=== PATIENT | male | born 1980 | race Caucasian/White ===

== ENCOUNTER 2017-05-13 15:18 | Emergency (ER) | payer OTHER ==
[~2017-05-13] VITALS: Ht 172.7 cm; Wt 101.2 kg
[2017-05-13] MEDS ORDERED: IOHEXOL 300 MG/ML 75 ML VIAL. IV ONE (17:00)
[2017-05-13] MEDS ORDERED: CONTRAST GIVEN MC PRN (17:00)
[2017-05-13] MEDS ORDERED: IV NORMAL SALINE 1,000ML 1,000 ML IV ONE (17:00)
[2017-05-13 17:04] LABS: BASO # 0.1 x10^3/uL (0.0-0.2); BASO % 1 % (0-3); EOS # 0.2 x10^3/uL (0.0-0.7); EOS % 4 % (0-3); HEMATOCRIT 45.3 % (39.0-53.0); HEMOGLOBIN 16.1 g/dL (13.0-17.5); LYMPH # 1.4 x10^3/uL (1.0-4.8); LYMPH % 24 % (24-48); MEAN CORPUSCULAR HEMOGLOBIN 31 pg (25-35); MEAN CORPUSCULAR HGB CONC 36 g/dL (31-37); MEAN CORPUSCULAR VOLUME 88 fL (79-100); MONO # 0.5 x10^3/uL (0.0-1.1); MONO % 8 % (0-9); NEUT # 3.7 x10^3uL (1.8-7.7); NEUT % 63 % (31-73); PLATELET COUNT 173 x10^3/uL (140-400); RED BLOOD COUNT 5.15 x10^6/uL (4.30-5.70); RED CELL DISTRIBUTION WIDTH 12.8 % (11.5-14.5); WHITE BLOOD COUNT 5.9 x10^3/uL (4.0-11.0)
[2017-05-13 17:05] LABS: CALCIUM 8.9 mg/dL (8.5-10.1); CREATININE 1.1 mg/dL (0.7-1.3); GFR 75.3; POTASSIUM 4.2 mmol/L (3.5-5.1)
--- NOTE | 2017-05-13 17:55 | RAD ---
Exam performed : CT Scan neck with contrast. Indication: Left neck pain with swelling and difficulty swallowing} Date of exam: 05/13/2017 . Comparison: None available} Technique: Helical sections of the neck were obtained during intravenous administration of unknown quantities of IV contrast Findings: The caudal aspects of the skull appear unremarkable. The visualized portions of the paranasal sinuses and mastoid air cells are clear. The parotid and submandibular salivary glands appear normal. Symmetric enlargement of bilateral pharyngeal tonsils noted. Evidence of an oropharyngeal or parapharyngeal soft tissue mass is absent. No pathologic lymphadenopathy is encountered. Definite laryngeal pathology is not identified. The thyroid gland is normal in appearance as are the visualized structures of the superior mediastinum. Impression: Mild enlargement of bilateral pharyngeal tonsils. No additional abnormality seen. PQRS Compliance Statement: One or more of the following individualized dose reduction techniques were utilized for this examination: 1. Automated exposure control 2. Adjustment of the mA and/or kV according to patient size 3. Use of iterative reconstruction technique Electronically signed by: Tanna Echeverria MD (05/13/2017 5:51 PM) [facility]
--- NOTE | 2017-05-13 17:58 | PHYS DOC ---
Past History Past Medical History: Hypertension Past Surgical History: No Surgical History Alcohol Use: Occasionally Drug Use: None Adult General Chief Complaint Chief Complaint: SORE THROAT HPI HPI Patient is a 36 year old M who presents with sore throat over the past 2 months with gradual worsening over the past 2 weeks. Gabe states that he has noticed a fullness in his throat with mild difficulty swallowing. He denies difficulty breathing. He has no history of smoking or chewing tobacco. 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 He has no other associated symptoms at this time. He has no known exacerbating or alleviating factors. Review of Systems Review of Systems Constitutional: Denies fever or chills [] Eyes: Denies change in visual acuity, redness, or eye pain [] HENT: Denies nasal congestion Respiratory: Denies cough or shortness of breath [] Cardiovascular: No additional information not addressed in HPI [] GI: Denies abdominal pain, nausea, vomiting, bloody stools or diarrhea [] : Denies dysuria or hematuria [] Musculoskeletal: Denies back pain or joint pain [] Integument: Denies rash or skin lesions [] Neurologic: Denies headache, focal weakness or sensory changes [] Endocrine: Denies polyuria or polydipsia [] All other systems were reviewed and found to be within normal limits, except as documented in this note. Family History Family History No pertinent family medical history was reported Current Medications Current Medications Current Medications Medications (Trade) Dose Ordered Sig/[place] Start Time Stop Time Status Last Admin Dose Admin Info (Do NOT chart on this entry -- for MONITORING) 1 each PRN DAILY PRN 05/13/17 17:00 18 16:59 Iohexol (Omnipaque 300 Mg/ml) 75 ml 1X ONCE 05/13/17 17:00 18 17:01 DC Sodium Chloride 1,000 ml @ 1,000 mls/hr 1X ONCE 05/13/17 17:00 18 17:59 18 17:19 1,000 MLS/HR Allergies Allergies Allergies Coded Allergies Type Severity Reaction Last Updated Verified No Known Drug Allergies 05/13/17 No Physical Exam Physical Exam Constitutional: Well developed, well nourished, no acute distress, non-toxic appearance. [] HENT: Normocephalic, atraumatic, Eyes: EOMI, conjunctiva normal, no discharge. [] Neck: Normal range of motion, supple, no stridor. [] Mild tenderness on the left mid neck as well as over the cricoid membrane Cardiovascular:Heart rate regular rhythm, Lungs & Thorax: Bilateral breath sounds clear to auscultation [] Abdomen: Bowel sounds normal, soft, no tenderness, no masses, no pulsatile masses. [] Skin: Warm, dry, no erythema, no rash. [] Extremities: No tenderness, no cyanosis, no clubbing, ROM intact, no edema. [] Neurologic: Alert and oriented X 3, normal motor function, normal sensory function, no focal deficits noted. [] Psychologic: Affect normal, judgement normal, mood normal. [] Current Patient Data Vital Signs Vital Signs Date Time Temp Pulse Resp B/P (MAP) Pulse Ox O2 Delivery O2 Flow Rate FiO2 05/13/17 17:28 70 18 141/82 (101) 98 Room Air 05/13/17 15:18 98.5 Lab Results Laboratory Tests Test 05/13/17 16:45 White Blood Count 5.9 x10^3/uL (4.0-11.0) Red Blood Count 5.15 x10^6/uL (4.30-5.70) Hemoglobin 16.1 g/dL (13.0-17.5) Hematocrit 45.3 % (39.0-53.0) Mean Corpuscular Volume 88 fL (79-100) Mean Corpuscular Hemoglobin 31 pg (25-35) Mean Corpuscular Hemoglobin Concent 36 g/dL (31-37) Red Cell Distribution Width 12.8 % (11.5-14.5) Platelet Count 173 x10^3/uL (140-400) Neutrophils (%) (Auto) 63 % (31-73) Lymphocytes (%) (Auto) 24 % (24-48) Monocytes (%) (Auto) 8 % (0-9) Eosinophils (%) (Auto) 4 % (0-3) H Basophils (%) (Auto) 1 % (0-3) Neutrophils # (Auto) 3.7 x10^3uL (1.8-7.7) Lymphocytes # (Auto) 1.4 x10^3/uL (1.0-4.8) Monocytes # (Auto) 0.5 x10^3/uL (0.0-1.1) Eosinophils # (Auto) 0.2 x10^3/uL (0.0-0.7) Basophils # (Auto) 0.1 x10^3/uL (0.0-0.2) Sodium Level 141 mmol/L (136-145) Potassium Level 4.2 mmol/L (3.5-5.1) Chloride Level 104 mmol/L (98-107) Carbon Dioxide Level 29 mmol/L (21-32) Anion Gap 8 (6-14) Blood Urea Nitrogen 19 mg/dL (8-26) Creatinine 1.1 mg/dL (0.7-1.3) Estimated GFR (Cockcroft-Gault) 75.3 Glucose Level 100 mg/dL (70-99) H Calcium Level 8.9 mg/dL (8.5-10.1) EKG EKG [] Radiology/Procedures Radiology/Procedures CT soft tissue neck Impressions: Radiology report reviewed - Normal with the exception of mildly enlarged tonsils bilaterally. Course & Med Decision Making Course & Med Decision Making Pertinent Labs and Imaging studies reviewed. (See chart for details) [] Dragon Disclaimer Dragon Disclaimer This electronic medical record was generated, in whole or in part, using a voice recognition dictation system. Departure Departure: Impression: Primary Impression: Sore throat Disposition: 01 HOME, SELF-CARE Condition: STABLE Referrals: BRI GALVAN DO (PCP) Patient Instructions: Strep Throat Tests-Brief Additional Instructions: Gabe was seen in the emergency department for sore throat/neck pain. No emergency medical condition was found on history or physical exam. He was found have normal labs. He did have a CT scan of his neck which showed mildly enlarged tonsils bilaterally. He was advised follow-up with ENT as soon as possible for further management. YOGESH CHASE MD May 13, 2017 17:58
[2017-05-13 18:00] VITALS: BP 152/104
== END 2017-05-13 18:00 | disposition home or self-care (01) ==
LOC: ER 15:18
DX: J02.9 Acute pharyngitis, unspecified (principal); M54.2 Cervicalgia; I10 Essential (primary) hypertension
CPT/HCPCS: 36415; 70491; 80048; 85025; 96360; 99285-25; J7030